=== PATIENT | male | born 1965 | race Caucasian/White ===

== ENCOUNTER 2018-02-01 21:59 | Emergency (ER) | payer MEDICAID ==
[~2018-02-01] VITALS: Ht 170.2 cm; Wt 74.8 kg
[2018-02-01 22:00] VITALS: BP 122/67
--- NOTE | 2018-02-01 22:08 | NUR ---
PT ASSISTED BACK TO LOBBY. PT IN STABLE CONDITION.
--- NOTE | 2018-02-01 23:40 | NUR ---
PT CALLED, NO RESPONSE
--- NOTE | 2018-02-01 23:45 | NUR ---
PT CALLED NO RESPONSE
--- NOTE | 2018-02-01 23:50 | NUR ---
PT CALLED NO REPSONSE
--- NOTE | 2018-02-01 23:52 | NUR ---
PATIENT LEFT WITHOUT BEING SEEN BY DR. RAHMAN. NO FURTHER CARE PROVIDED FOR PATIENT.
== END 2018-02-01 23:40 | disposition left against medical advice (07) ==
LOC: MED 21:59
DX: M25.551 Pain in right hip (principal); Z53.21 Procedure and treatment not carried out due to patient leaving prior to being seen by health care provider; W19.XXXA Unspecified fall, initial encounter; Y93.89 Activity, other specified; Y92.89 Other specified places as the place of occurrence of the external cause; Y99.0 Civilian activity done for income or pay

== ENCOUNTER 2018-03-12 19:10 | Emergency (ER) | payer MEDICAID ==
[~2018-03-12] VITALS: Ht 167.6 cm; Wt 77.1 kg
[2018-03-12 19:26] VITALS: BP 118/78
--- NOTE | 2018-03-12 19:26 | NUR ---
TO BED # 6 AMBULATORY, REPORT GIVEN TO JIM ALVAREZ
--- NOTE | 2018-03-12 19:30 | NUR ---
PT PRESENTED ER WITH C/O PAIN TO THE LEFT KNEE X 2 WEEKS. PT STATED HE FELT HIS KNEE LOCK WHILE AT WORK. IT THEN BEGAN TO SWELL. SOME SWELLING TO SIGHT, NO REDDNESS. NO PREVIOUS MEDICAL HX AND KNA. A/0 X 4.SKIN IS PINK/WARM/DRY; EVEN AND STEADY GAIT; VSS; PATIENT POSITIONED FOR COMFORT; HOB ELEVATED; BEDRAILS UP X2; BED DOWN. ER MD MADE AWARE OF PT STATUS.
--- NOTE | 2018-03-12 19:40 | NUR ---
x ray with pt at bedside
[2018-03-12] MEDS ORDERED: IBUPROFEN 600 MG TAB PO ONE (21:05)
[2018-03-12] MEDS ORDERED: HYDROcodone/APAP 10/325 MG 1 TAB TAB PO ONE (21:05)
[2018-03-12 21:38] VITALS: BP 118/78
--- NOTE | 2018-03-12 21:38 | NUR ---
Patient discharged with v/s stable. Written and verbal after care instructions given and explained. Patient alert, oriented and verbalized understanding of instructions. Ambulatory with steady gait. All questions addressed prior to discharge. ID band removed. Patient advised to follow up with PMD. Rx of IBUPROFEN AND NORCO were given. Patient educated on indication of medication including possible reaction and side effects. Opportunity to ask questions provided and answered.
== END 2018-03-12 21:38 | disposition home or self-care (01) ==
LOC: MED 19:10
DX: M25.562 Pain in left knee (principal); F17.210 Nicotine dependence, cigarettes, uncomplicated
CPT/HCPCS: 73562; 99284; Q0092